=== PATIENT | female | born 2000 | race African-American/Black ===

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

== ENCOUNTER 2019-03-05 11:51 | Emergency (ER) | payer OTHER ==
[2019-03-05 12:27] VITALS: BP 114/69
--- NOTE | 2019-03-05 13:09 | UC ---
Lower Extremity/Ankle HPI - HPI Summary HPI Summary: FOR SEVERAL MONTHS PATIENT HAS HAD INTERMITTENT RIGHT LATERAL ANKLE PAIN THAT IS WORSE WITH AMBULATION AND WEIGHTBEARING. DENIES ANY DISCRETE INJURY OR TRAUMA. NO SWELLING OR BRUISING. - History of Current Complaint Chief Complaint: UCLowerExtremity Stated Complaint: RT ANKLE INJURY Time Seen by Provider: 03/05/19 12:49 Hx Obtained From: Patient Hx Last Menstrual Period: irregular Onset/Duration: Gradual Onset, Lasting Weeks, Still Present Severity Initially: Moderate Severity Currently: Moderate Pain Intensity: 5 Pain Scale Used: 0-10 Numeric Aggravating Factor(s): Standing, Ambulation Alleviating Factor(s): Rest Able to Bear Weight: Yes - Allergies/Home Medications Allergies/Adverse Reactions: Allergies Allergy/AdvReac Type Severity Reaction Status Date / Time No Known Allergies Allergy Verified 03/05/19 12:28 Home Medications: Home Medications NK [No Home Medications Reported] 03/05/19 [History Confirmed 03/05/19] PMH/Surg Hx/FS Hx/Imm Hx Previously Healthy: Yes - Surgical History Surgical History: Yes Surgery Procedure, Year, and Place: c section - Family History Known Family History: Positive: None Negative: Cardiac Disease, Hypertension, Diabetes - Social History Alcohol Use: None Substance Use Type: Marijuana Substance Use Comment - Amount & Last Used: 07/01/17 Smoking Status (MU): Light Every Day Tobacco Smoker - Immunization History Most Recent Influenza Vaccination: unknown Most Recent Pneumonia Vaccination: none Review of Systems All Other Systems Reviewed And Are Negative: Yes Constitutional: Positive: Negative Skin: Positive: Negative Respiratory: Positive: Negative Cardiovascular: Positive: Negative Gastrointestinal: Positive: Negative Musculoskeletal: Positive: Arthralgia Physical Exam Triage Information Reviewed: Yes Appearance: Well-Appearing, No Pain Distress, Well-Nourished Vital Signs: Initial Vital Signs Temp 98.1 F 03/05/19 12:22 Pulse 73 03/05/19 12:22 Resp 18 03/05/19 12:22 BP 114/69 03/05/19 12:22 Pulse Ox 98 03/05/19 12:22 Vital Signs Reviewed: Yes Eyes: Positive: Conjunctiva Clear ENT: Positive: Hearing grossly normal Neck: Positive: Supple Respiratory: Positive: No respiratory distress, No accessory muscle use Cardiovascular: Positive: Pulses Normal Abdomen Description: Positive: Soft Musculoskeletal: Positive: ROM Intact, No Edema, Other: - TTP RIGHT ANKLE JUST ANTERIOR TO LATERAL MALLEOLUS Neurological: Positive: Alert Psychological: Positive: Age Appropriate Behavior Skin: Negative: Rashes Diagnostics - Radiology RIGHT ANKLE XRAYS Radiology Interpretation Completed By: Radiologist Summary of Radiographic Findings: Normal articular alignment. Negative for fracture or osteochondral lesion. Mild soft tissue swelling over the lateral malleolus. Lower Extremity Course/Dx - Course Course Of Treatment: X-RAY SHOWS SOME SOFT TISSUE SWELLING BUT NO FRACTURE OR DISLOCATION. SUSPECT SHE HAS A TENDINITIS AND MAY BENEFIT FROM ORTHOTICS AND/OR PHYSICAL THERAPY. ADVISED SHE FOLLOW UP ORTHOPEDICS TO FURTHER DISCUSS TREATMENT OPTIONS. - Differential Dx/Diagnosis Provider Diagnosis: Right ankle tendonitis Discharge - Sign-Out/Discharge Documenting (check all that apply): Patient Departure All imaging exams completed and their final reports reviewed: Yes - Discharge Plan Condition: Stable Disposition: HOME Patient Education Materials: Tendinitis (ED) Referrals: Dalton Yo MD [Medical Doctor] - 1 Week Additional Instructions: Some soft tissue swelling but no fracture or dislocation seen on your ankle x- ray today. Suspect you have a tendinitis and would benefit from orthopedic evaluation. Call them today to schedule an appointment for next week. - Billing Disposition and Condition Condition: STABLE Disposition: Home
== END 2019-03-05 14:04 | disposition home or self-care (01) ==
LOC: UCEAST 11:51
DX: M77.9 Enthesopathy, unspecified (principal); M25.571 Pain in right ankle and joints of right foot; F17.200 Nicotine dependence, unspecified, uncomplicated
CPT/HCPCS: 99211; G0463

== ENCOUNTER 2019-05-26 13:41 | Emergency (ER) | payer OTHER ==
--- NOTE | 2019-05-26 16:04 | UC ---
Lower Extremity/Ankle HPI - HPI Summary HPI Summary: 18-year-old female presents with complaints of right posterior leg pain. Patient was evaluated at this facility on 03/05/2019 for right ankle pain and was diagnosed with tendinitis. States that her ankle pain has persisted since that time however she never did follow up with orthopedic surgery as instructed. She has been continually using a CAM boot since her previous visit. States the pain that she has developed today though is different from the previous pain as it is more severe and now is running up the back of her leg from mid thigh to mid calf. Last took ibuprofen last evening with minimal relief in symptoms. Patient reports that her father of an unprovoked PE. Denies fever, chills, erythema, swelling of the leg, chest pain, shortness of breath, numbness, tingling, recent surgery, or injury to the extremity. - History of Current Complaint Chief Complaint: UCLowerExtremity Stated Complaint: ANKLE PAIN Time Seen by Provider: 05/26/19 15:49 Hx Obtained From: Patient Hx Last Menstrual Period: depo Pain Intensity: 7 - Allergies/Home Medications Allergies/Adverse Reactions: Allergies Allergy/AdvReac Type Severity Reaction Status Date / Time No Known Allergies Allergy Verified 05/26/19 14:53 Home Medications: Home Medications Ibuprofen TAB* [Motrin TAB* 400 MG] 400 mg PO Q6H PRN 05/26/19 [History Confirmed 05/26/19] PMH/Surg Hx/FS Hx/Imm Hx Previously Healthy: Yes - Denies significant PMH - Surgical History Surgical History: Yes Surgery Procedure, Year, and Place: c section - Family History Known Family History: Positive: Other - PE (father) Negative: Cardiac Disease, Hypertension, Diabetes - Social History Occupation: Employed Full-time Lives: With Family Alcohol Use: None Substance Use Type: Marijuana Substance Use Comment - Amount & Last Used: 07/01/17 Smoking Status (MU): Light Every Day Tobacco Smoker - Immunization History Most Recent Influenza Vaccination: unknown Most Recent Pneumonia Vaccination: none Review of Systems All Other Systems Reviewed And Are Negative: Yes Constitutional: Negative: Fever, Chills Skin: Negative: Rash, Bruising Respiratory: Negative: Shortness Of Breath, Cough Cardiovascular: Positive: Negative Gastrointestinal: Positive: Negative Genitourinary: Positive: Negative Musculoskeletal: Positive: Other: - See HPI Neurological: Positive: Negative Is Patient Immunocompromised?: No Physical Exam - Summary Physical Exam Summary: GENERAL APPEARANCE: Well developed, well nourished, alert and cooperative, and appears to be in no acute distress. CARDIAC: Normal S1 and S2. No S3, S4 or murmurs. Rhythm is regular. There is no peripheral edema, cyanosis or pallor. Extremities are warm and well perfused. Capillary refill is less than 2 seconds. Peripheral pulses intact. LUNGS: Clear to auscultation without rales, rhonchi, wheezing or diminished breath sounds. ABDOMEN: Positive bowel sounds. Soft, nondistended, nontender. No guarding or rebound. No masses or hepatosplenomegally. MUSKULOSKELETAL: ROM intact to all extremities. No joint erythema or tenderness. Normal muscular development. Normal gait. EXTREMITIES: Right calf supple. Tenderness with palpation to the posterior calf , knee, and proximal upper leg along the deep venous system. No edema or erythema noted. Circulation and sensation intact. SKIN: Skin normal color, texture and turgor with no lesions or eruptions. Triage Information Reviewed: Yes Vital Signs: Initial Vital Signs Temp 98.7 F 05/26/19 14:49 Pulse 88 05/26/19 14:49 Resp 16 05/26/19 14:49 BP 119/86 05/26/19 14:49 Pulse Ox 100 05/26/19 14:49 Vital Signs Reviewed: Yes Diagnostics - Radiology No standard instances Radiology Interpretation Completed By: Radiologist Summary of Radiographic Findings: EXAM: US Duplex Right Lower Extremity Veins, Limited. EXAM DATE/TIME: 05/26/2019 6:31 PM. CLINICAL HISTORY: 18 years old, female; Pain; Leg, upper and leg, lower; Right; Additional info: R/O dvt. TECHNIQUE: Imaging protocol: Real-time Duplex ultrasound of the Right Lower Extremity with. 2-D mckeon scale, color Doppler flow and spectral waveform analysis with image. documentation. Limited exam was focused on the right lower extremity veins. COMPARISON: No relevant prior studies available. FINDINGS: Right deep veins: Unremarkable. The common femoral, femoral, proximal profunda. femoral and popliteal veins are patent without thrombus. Normal Doppler. waveforms. Normal compressibility and/or augmentation response. The right. posterior tibial and peroneal veins are also patent. Right superficial veins: Unremarkable. Saphenofemoral junction is patent. without thrombus. Soft tissues: Unremarkable. No popliteal cyst. IMPRESSION: No acute findings. No evidence of right lower extremity DVT. Lower Extremity Course/Dx - Course Course Of Treatment: 18-year-old female presents with complaints of right posterior leg pain. Patient was evaluated at this facility on 03/05/2019 for right ankle pain and was diagnosed with tendinitis. States that her ankle pain has persisted since that time however she never did follow up with orthopedic surgery as instructed. She has been continually using a CAM boot since her previous visit. States the pain that she has developed today though is different from the previous pain as it is more severe and now is running up the back of her leg from mid thigh to mid calf. Last took ibuprofen last evening with minimal relief in symptoms. Patient reports that her father of an unprovoked PE. Denies fever, chills, erythema, swelling of the leg, chest pain, shortness of breath, numbness, tingling, recent surgery, or injury to the extremity. Afebrile. Vital signs stable. On exam patient was noted to have a supple right calf with tenderness with palpation to the posterior calf, knee, and proximal upper leg along the deep venous system. No edema or erythema noted. Circulation and sensation intact. Remainder of exam was unremarkable. An ultrasound of the right leg was obtained and was negative for DVT. I recommended continued conservative treatment for her leg pain with follow-up with orthopedic surgery within 5-7 days. Anticipatory guidance and warning symptoms reviewed with the patient. Verbalizes understanding and agrees with plan of care. - Differential Dx/Diagnosis Differential Diagnosis/HQI/PQRI: DVT, Phlebitis, Tendonitis Provider Diagnosis: Right leg pain Discharge - Sign-Out/Discharge Documenting (check all that apply): Patient Departure All imaging exams completed and their final reports reviewed: Yes - Discharge Plan Condition: Stable Disposition: HOME Patient Education Materials: Leg Pain (ED) Forms: *Work Release Referrals: No Primary Care Phys,NOPCP [Primary Care Provider] - Additional Instructions: The ultrasound performed in the clinic today showed no evidence of a blood clot in the leg. Continue taking ibuprofen 600 mg every 6-8 hours as needed for pain. Rest the leg as much as possible. Try to avoid activities that cause pain. Follow-up with orthopedic surgery within 5-7 days for further evaluation and treatment. Seek immediate medical attention in the emergency room if you have worsening pain despite taking the pain medication, swelling of the leg, chest pain, shortness of breath, or any worsening of symptoms. - Billing Disposition and Condition Condition: STABLE Disposition: Home
[2019-05-26] MEDS ORDERED: Naproxen TAB* 250 MG PO ONE (16:42)
[2019-05-26 21:42] VITALS: BP 117/75
== END 2019-05-26 19:42 | disposition home or self-care (01) ==
LOC: UCEAST 13:41
DX: M79.662 Pain in left lower leg (principal); F17.210 Nicotine dependence, cigarettes, uncomplicated
CPT/HCPCS: 99212; A9270-GY; G0463

== ENCOUNTER 2020-01-15 15:06 | Emergency (ER) | payer SELFPAY ==
--- NOTE | 2020-01-15 16:52 | ED ---
Throat Pain/Nasal Congestion - HPI Summary HPI Summary: 19 year old female presents to the ED with a chief complaint of dental pain starting 3 days ago. The pain is rated 10/10 in severity. Patient reports that the pain originates at an lower left molar and radiates to her left ear. Ibuprofen reduces the pain. Patient does not have a primary dentist. - History of Current Complaint Chief Complaint: EDDentalPain Time Seen by Provider: 01/15/20 16:43 Hx Obtained From: Patient Onset/Duration: Gradual Onset, Lasting Days, Still Present Severity: Severe Cough: None - Allergies/Home Medications Allergies/Adverse Reactions: Allergies Allergy/AdvReac Type Severity Reaction Status Date / Time No Known Allergies Allergy Verified 01/15/20 15:10 Home Medications: Home Medications Acetaminophen [Tylenol Extra Strength] 500 - 1,000 mg PO Q6H PRN 01/15/20 [ History Confirmed 01/15/20] HYDROcodone/ACETAMIN 5-325 MG* [Johnson 5-325 TAB*] 1 tab PO Q6H PRN #20 tab MDD 4 01/15/20 [Rx] Penicillin VK TAB* [Penicillin VK 250 mg Tab*] 500 mg PO QID #40 tab 01/15/20 [ Rx] PMH/Surg Hx/FS Hx/Imm Hx Endocrine/Hematology History: Denies: Hx Diabetes, Hx Thyroid Disease Cardiovascular History: Denies: Hx Hypertension Respiratory History: Denies: Hx Asthma, Hx Chronic Obstructive Pulmonary Disease (COPD) GI History: Denies: Hx Ulcer - Surgical History Surgery Procedure, Year, and Place: c section Infectious Disease History: No Infectious Disease History: Denies: Hx Hepatitis, Hx Human Immunodeficiency Virus (HIV), Traveled Outside the [place] in Last 30 Days - Family History Known Family History: Positive: None, Other - PE (father) Negative: Cardiac Disease, Hypertension, Diabetes - Social History Alcohol Use: None Hx Substance Use: No Substance Use Type: Reports: Marijuana Substance Use Comment - Amount & Last Used: 07/01/17 Hx Tobacco Use: Yes Smoking Status (MU): Light Every Day Tobacco Smoker Review of Systems Negative: Fever Positive: Dental Pain Positive: Myalgia All Other Systems Reviewed And Are Negative: Yes Physical Exam - Summary Physical Exam Summary: Appearance: The patient is well-nourished in no acute distress and in no acute pain. Skin: The skin is warm and dry, and skin color reflects adequate perfusion. HEENT: The head is normocephalic and atraumatic. The pupils are equal and reactive. The conjunctivae are clear and without drainage. Nares are patent and without drainage. Mouth reveals moist mucous membranes, and the throat is without erythema and exudate. The external ears are intact. The ear canals are patent and without drainage. The tympanic membranes are intact. Carried molar on left mandibular. No abscess or drainage in mouth. Neck: The neck is supple with full range of motion and non-tender. There are no carotid bruits. There is no neck vein distension. Respiratory: Chest is non-tender. Lungs are clear to auscultation and breath sounds are symmetrical and equal. Cardiovascular: Heart is regular rate and rhythm. There is no murmur or rub auscultated. There is no peripheral edema and pulses are symmetrical and equal. Abdomen: The abdomen is soft and non-tender. There are normal bowel sounds heard in all four quadrants and there is no organomegaly palpated. Musculoskeletal: There is no back tenderness noted. Extremities are non-tender with full range of motion. There is good capillary refill. There is no peripheral edema or calf tenderness elicited. Neurological: Patient is alert and oriented to person, place and time. The patient has symmetrical motor strength in all four extremities. Cranial nerves are grossly intact. Deep tendon reflexes are symmetrical and equal in all four extremities. Psychiatric: The patient has an appropriate affect and does not exhibit any anxiety or depression. Triage Information Reviewed: Yes Vital Signs On Initial Exam: Initial Vitals Temp Pulse Resp BP Pulse Ox 98.8 F 89 16 138/92 100 01/15/20 15:08 01/15/20 15:08 01/15/20 15:08 01/15/20 15:08 01/15/20 15:08 Vital Signs Reviewed: Yes Procedures - Sedation Patient Received Moderate/Deep Sedation with Procedure: No Diagnostics - Vital Signs Vital Signs Temp Pulse Resp BP Pulse Ox 01/15/20 15:08 98.8 F 89 16 138/92 100 - Laboratory Lab Statement: Any lab studies that have been ordered have been reviewed, and results considered in the medical decision making process. EENT Course/Dx - Course Course Of Treatment: Ms. Fontana may be erupting wisdom tooth. She does have a caried tooth in the vicinity of her pain. I do not see any sign of cellulitis or abscess. - Diagnoses Provider Diagnoses: Toothache Is Visit Related: No Discharge ED - Sign-Out/Discharge Documenting (check all that apply): Patient Departure - Discharge Plan Condition: Stable Disposition: HOME Prescriptions: HYDROcodone/ACETAMIN 5-325 MG* [Johnson 5-325 TAB*] 1 tab PO Q6H PRN #20 tab MDD 4 PRN Reason: Pain Penicillin VK TAB* [Penicillin VK 250 mg Tab*] 500 mg PO QID #40 tab Patient Education Materials: Toothache (ED) Referrals: EVA MCNALLY [Doctor of Dental Surgery] - Additional Instructions: Follow up with Dr. Mcnally, dentistry, in 2-3 days. - Billing Disposition and Condition Condition: STABLE Disposition: Home - Attestation Statements Document Initiated by Joe: Yes Documenting Scribe: Ernie Paez Provider For Whom Joe is Documenting (Include Credential): Dr. Baldomero Sullivanibdiana Attestation: Ernie Chua scribed for Dr. Baldomero Govea on 01/15/20 at 2133. Scribe Documentation Reviewed: Yes Provider Attestation: The documentation as recorded by the Ernie sanchez accurately reflects the service I personally performed and the decisions made by , Dr. Baldomero Govea Status of Scribdiana Document: Viewed
[2020-01-15 17:18] VITALS: BP 120/82
== END 2020-01-15 17:17 | disposition home or self-care (01) ==
LOC: ED 15:06
DX: K08.89 Other specified disorders of teeth and supporting structures (principal); F17.210 Nicotine dependence, cigarettes, uncomplicated
CPT/HCPCS: 99282

== ENCOUNTER 2022-12-30 05:33 | Inpatient (IN) ==
[2022-12-30] MEDS ORDERED: Lactated Ringers 1000 ml BAG 1,000 ML IV ONE (06:06)
[2022-12-30 06:14] LABS: ABS Eosinophils 0.2 10^3/ul (0-0.6); ABS Lymphocytes 2.2 10^3/ul (1.0-4.8); ABS Monocytes 1.2 10^3/ul (0-0.8); ABS Neutrophils 7.7 10^3/ul (1.5-7.7); Eosinophil % 1.9 %; Hematocrit 34 % (35-47); Hemoglobin 11.1 g/dL (12.0-16.0); Lymphocyte % 19.3 %; Mean Corpuscular HGB Conc 33 g/dL (31-36); Mean Corpuscular Hemoglobin 31 pg (27-31); Mean Corpuscular Volume 93 fL (80-97); Mean Platelet Volume 7.5 fL (7.4-10.4); Nucleated Red Blood Cells % 0.1; Platelet Count 316 10^3/uL (150-450); Red Blood Count 3.61 10^6 /uL (3.70-4.87); Red Cell Distribution Width 14 % (10-15); White Blood Count 11.3 10^3/uL (3.5-10.8)
[2022-12-30] MEDS ORDERED: ceFOXitin 2 GM PREMIX 50 ML IVPB ONE (06:30)
[2022-12-30] MEDS ORDERED: Buffered Lidocaine 1% SYRIN 1 ml INTRADERM ONE (07:29)
[2022-12-30] MEDS ORDERED: Morphine PF AMP (0.5MG/ML) 5 MG/10 ML AMP ONE (07:50)
[2022-12-30] MEDS ORDERED: Oxytocin 10 UNITS/ML 1 ML VIAL ONE (07:51)
[2022-12-30] MEDS ORDERED: Ondansetron 4 mg VIAL 2 MG/ML 2 ml VIAL ONE (07:51)
[2022-12-30] MEDS ORDERED: Lactated Ringers 1000 ml BAG 1,000 ML IV SCH ×2 (08:00→10:00)
[2022-12-30] MEDS ORDERED: Acetaminophen IV 1 GM/100ML 1,000 MG/100 ML BAG IV PRN (08:38)
[2022-12-30] MEDS ORDERED: Naloxone 0.4 mg VIAL 0.4 mg/ml 1 ml VIAL IV PRN (08:38)
[2022-12-30] MEDS ORDERED: Ondansetron 4 mg VIAL 2 MG/ML 2 ml VIAL IV PRN (08:41)
[2022-12-30] MEDS ORDERED: Naloxone 0.4 mg VIAL 0.4 mg/ml 1 ml VIAL IV PUSH PRN (08:41)
[2022-12-30] MEDS ORDERED: Metoclopramide 5 MG/ML VIAL (10 mg) IV PRN (08:41)
[2022-12-30] MEDS ORDERED: Dexamethasone IV 4 MG/ML VIAL 1 ml VIAL ONE (08:56)
[2022-12-30] MEDS ORDERED: Witch Hazel PAD JAR TOPICAL PRN (09:29)
[2022-12-30] MEDS ORDERED: Glycerin ADULT 2.4 gm SUPP PR PRN (09:29)
[2022-12-30] MEDS ORDERED: Oxytocin in LR 20,000 MILLI.UNIT/1,000 ML BAG IV SCH (09:30)
[2022-12-30 09:53] LABS: Urine Appearance Cloudy; Urine Bilirubin Negative (Negative); Urine Blood 1+ (Negative); Urine Color Yellow; Urine Glucose Negative (Negative); Urine Ketones Negative (Negative); Urine Nitrite Negative (Negative); Urine Protein 1+(30 mg/dL) (Negative); Urine Specific Gravity 1.013 (1.002-1.030); Urine Urobilinogen Negative (Negative)
[2022-12-30 10:01] LABS: Urine Bacteria 1+ (Absent); Urine Red Blood Cell Trace(0-2/hpf) (Absent); Urine Renal Epithelial Cells Present (Absent); Urine Squamous Epithelial Cell Present (Absent); Urine White Blood Cell Trace(0-5/hpf) (Absent)
[2022-12-31 06:16] LABS: Hematocrit 30 % (35-47); Hemoglobin 10.1 g/dL (12.0-16.0); Mean Corpuscular HGB Conc 33 g/dL (31-36); Mean Corpuscular Hemoglobin 31 pg (27-31); Mean Corpuscular Volume 92 fL (80-97); Mean Platelet Volume 7.2 fL (7.4-10.4); Platelet Count 299 10^3/uL (150-450); Red Blood Count 3.29 10^6 /uL (3.70-4.87); Red Cell Distribution Width 14 % (10-15); White Blood Count 17.6 10^3/uL (3.5-10.8)
[2022-12-31 06:36] LABS: ABS Eosinophils 0.1 10^3/ul (0-0.6); ABS Lymphocytes 2.9 10^3/ul (1.0-4.8); ABS Monocytes 1.7 10^3/ul (0-0.8); ABS Neutrophils 12.8 10^3/ul (1.5-7.7); Eosinophil % 0.7 %; Lymphocyte % 16.6 %; Nucleated Red Blood Cells % 0.1
[2022-12-31 08:28] LABS: Urine Benzodiazepine Screen None Detected (None Detect); Urine Opiates Screen None Detected (None Detect)
[2022-12-31] MEDS ORDERED: Varicella Virus Vaccine Live 0.5 ML VIAL SUBCUT ONE (10:30)
[2023-01-02 08:11] VITALS: BP 117/74
== END 2023-01-02 17:00 | disposition home or self-care (01) | DRG 540 ==
LOC: MCHOB 05:33
PROVIDERS: ADMIT Obstetrics & Gynecology; ATTEND Obstetrics & Gynecology